=== PATIENT | female | born 1955 | race Two or more races ===

== ENCOUNTER 2023-09-11 01:07 | Inpatient (IN) | payer OTHER ==
[~2023-09-11] VITALS: Ht 167.6 cm; Wt 101.4 kg
[2023-09-11] VITALS (32 sets, daily range): BP systolic 61–131; BP diastolic 34–75; PULSE 58–92; RESP 14–16; TEMP 99.9–100.8; O2SAT 88–100
[2023-09-11] MEDS ORDERED: fentaNYL Drip 2500mCg/250mlNS 250 ML IV ONE (01:18)
[2023-09-11] MEDS ORDERED: PROPOFOL 100 ML IV ONE (01:18)
[2023-09-11] MEDS: fentaNYL Drip 2500mCg/250mlNS 250 ML IV SCH ×2 (01:28→14:21)
[2023-09-11] MEDS: PROPOFOL 100 ML IV SCH ×2 (01:28→14:15)
[2023-09-11 01:38] LABS: Basophils # (auto) 0.1 10 ^3/uL (0-0.2); Basophils % (auto) 0.7 % (0.0-2.0); Eosinophils # (auto) 0.4 10 ^3/uL (0-0.8); Eosinophils % (auto) 2.6 % (0.0-7.0); Hematocrit 44.2 % (36.0-46.0); Hemoglobin 14.3 g/dL (12.2-16.2); Lymphocytes # (auto) 7.4 10 ^3/uL (0.4-5.4); Lymphocytes % (auto) 42.7 % (10.0-50.0); Mean Corpuscular Hemoglobin 28.4 pg (28.0-32.0); Mean Corpuscular Hgb Conc. 32.2 g/dL (32.0-36.0); Mean Corpuscular Volume 88.1 fL (80.0-100.0); Monocytes # (auto) 0.7 10 ^3/uL (0-1.3); Monocytes % (auto) 3.8 % (0.0-12.0); Neutrophils # (auto) 8.7 10 ^3/uL (1.6-8.6); Neutrophils % (auto) 50.2 % (37.0-80.0); Nucleated Red Blood Cells % 0.1 %; Red Blood Cells 5.02 10^6/uL (4.0-5.20); Red Cell Distribution Width 13.8 % (11.8-14.3); White Blood Cell 17.2 10^3/uL (4.4-10.8)
[2023-09-11 01:50] LABS: Alanine Aminotransferase 287 U/L (7-40); Albumin 3.8 g/dL (3.2-4.8); Alkaline Phosphatase 142 U/L (46-116); Anion Gap 11 (5-15); Aspartate Aminotransferase 290 U/L (13-40); BUN/Creatinine Ratio 7.2 (10.0-20.0); Blood Urea Nitrogen 7 mg/dL (9-23); Calcium 8.2 mg/dL (8.7-10.4); Carbon Dioxide 22 mmol/L (20-30); Chloride 106 mmol/L (98-107); Glucose 233 mg/dL (74-106); Potassium 3.1 mmol/L (3.5-5.1); Sodium 139 mmol/L (136-145)
[2023-09-11 01:51] LABS: Bilirubin, Total 0.5 mg/dL (0.2-1.0); Total Protein 6.2 g/dL (5.7-8.2)
[2023-09-11] MEDS ORDERED: LIDOCAINE 4MG/ML IV SOLN 500 ML IV SCH (02:00)
[2023-09-11] MEDS ORDERED: LIDOCAINE HCL 100 MG/5ML (2%) SYRG INJ IV ONE (02:00)
[2023-09-11 03:19] LABS: Base Excess -5.5 mmol/L (-2.0-2.0)
[2023-09-11 03:27] LABS: Urine Bacteria NONE SEEN /hpf (None Seen); Urine Blood 1+ /uL (Negative); Urine Clarity HAZY (Clear); Urine Color Yellow (Yellow); Urine Mucus FEW (None Seen); Urine Protein, UAD 1+ (Negative); Urine Specific Gravity 1.018 (1.001-1.035); Urine WBC 3 /hpf (0 - 5); Urine pH 5.5 (5.0-8.0)
[2023-09-11] MEDS ORDERED: ONDANSETRON HCL 4 MG/2 ML VIAL IV PRN (04:30)
[2023-09-11] MEDS ORDERED: DOCUSATE SOD 100 MG CAP PO PRN (04:30)
[2023-09-11] MEDS ORDERED: MORPHINE SULFATE INJ 2 MG/ml SYRG IV PRN (04:30)
[2023-09-11] MEDS ORDERED: VANCOMYCIN PER PHARMACY 0 MG IV SCH (04:45)
[2023-09-11] MEDS: SODIUM CHLORIDE 0.9% 1,000 ML IV SCH ×2 (04:58→14:30)
[2023-09-11] MEDS: POTASSIUM CHL 20MEQ/100ML 100 ML IV SCH ×2 (04:59→07:00)
[2023-09-11] MEDS ORDERED: VANCOMYCIN 1GM/250ML 250 ML IV ONE (05:00)
[2023-09-11 05:13] LABS: INR 1.02 (0.9-1.15); Prothrombin Time 10.7 sec (9.3-11.8)
[2023-09-11 06:07] LABS: Lactic Acid w/Reflex 2.1 mmol/L (0.4-2.0)
[2023-09-11] MEDS: CEFEPIME 1GM/ 50ML 50 ML IV SCH ×3 (06:48→22:02)
[2023-09-11 08:29] LABS: Base Excess -3.1 mmol/L (-2.0-2.0)
[2023-09-11] MEDS ORDERED: SODIUM CHLORIDE 0.9% 1,000 ML IV ONE ×2 (09:00→13:30)
[2023-09-11] MEDS: MAGNESIUM SULFATE 1GM/100ML 100 ML IV SCH ×2 (09:35→10:56)
[2023-09-11 12:25] LABS: Anion Gap 11 (5-15); Carbon Dioxide 21 mmol/L (20-30); Chloride 108 mmol/L (98-107); Potassium 4.1 mmol/L (3.5-5.1); Sodium 140 mmol/L (136-145)
[2023-09-11 12:43] LABS: BUN/Creatinine Ratio 6.1 (10.0-20.0); Blood Urea Nitrogen 7 mg/dL (9-23)
[2023-09-11 12:44] LABS: Magnesium 2.5 mg/dL (1.6-2.6)
[2023-09-11 13:16] LABS: Glucose 102 mg/dL (74-106)
[2023-09-11 13:18] LABS: Lactic Acid w/Reflex 3.9 mmol/L (0.4-2.0)
[2023-09-11 13:52] LABS: Amphetamine Screen, Urine Neg (NEGATIVE)
[2023-09-11 13:53] LABS: Barbiturate Scree,Urine Neg (NEGATIVE); Benzodiazephine Screen, Urine Neg (NEGATIVE); Cocaine Screen, Urine Neg (NEGATIVE)
[2023-09-11 13:54] LABS: Cannabinoid Screen, Urine Neg (NEGATIVE); Opiate Scree,Urine Neg (NEGATIVE); Phencyclidine Screen, Urine Neg (NEGATIVE)
[2023-09-11] MEDS ORDERED: LIDOCAINE 1% (LOCAL ANESTH.) PF 5ml SDV ID ONE (17:15)
[2023-09-11] MEDS: VANCOMYCIN 1GM/250ML 250 ML IV SCH (17:39)
[2023-09-11] MEDS ORDERED: ASPirin 81 mg TAB PO ONE (21:00)
[2023-09-11] MEDS ORDERED: HEPARIN SODIUM (PORCINE) 5000 UNITS/ML 1ML VIAL IV ONE (21:15)
[2023-09-11] MEDS ORDERED: HEPARIN DRIP/D5W 100UNITS/ML 250 ML IV SCH (21:15)
[2023-09-11 21:39] LABS: Basophils # (auto) 0.1 10 ^3/uL (0-0.2); Basophils % (auto) 0.8 % (0.0-2.0); Eosinophils # (auto) 0.1 10 ^3/uL (0-0.8); Eosinophils % (auto) 0.8 % (0.0-7.0); Hematocrit 37.9 % (36.0-46.0); Hemoglobin 12.6 g/dL (12.2-16.2); Lymphocytes # (auto) 0.9 10 ^3/uL (0.4-5.4); Lymphocytes % (auto) 9.4 % (10.0-50.0); Mean Corpuscular Hemoglobin 28.4 pg (28.0-32.0); Mean Corpuscular Hgb Conc. 33.2 g/dL (32.0-36.0); Mean Corpuscular Volume 85.6 fL (80.0-100.0); Monocytes # (auto) 0.7 10 ^3/uL (0-1.3); Monocytes % (auto) 7.6 % (0.0-12.0); Neutrophils # (auto) 7.6 10 ^3/uL (1.6-8.6); Neutrophils % (auto) 81.4 % (37.0-80.0); Nucleated Red Blood Cells % 0.1 %; Red Blood Cells 4.43 10^6/uL (4.0-5.20); Red Cell Distribution Width 13.8 % (11.8-14.3); White Blood Cell 9.3 10^3/uL (4.4-10.8)
[2023-09-11] MEDS: LIDOCAINE 4MG/ML IV SOLN 500 ML IV SCH (22:00)
[2023-09-11] MEDS: ACETAMINOPHEN 325 MG TAB PO PRN (22:01)
[2023-09-11] MEDS: SODIUM CHLOR 0.9% PF (SALINE LOCK) 10ML VIAL/SYR IV SCH (22:01)
[2023-09-11 22:35] LABS: INR 1.04 (0.9-1.15); Partial Thromboplastin Time 28.1 SEC (24.5-34.5); Prothrombin Time 10.9 sec (9.3-11.8)
[2023-09-11] MEDS ORDERED: NOREPINEPHRINE 8 MG/250ML KIT 250 ML IV ONE (23:15)
[2023-09-11] MEDS: NOREPINEPHRINE 8 MG/250ML KIT 250 ML IV SCH (23:29)
[2023-09-12] VITALS (104 sets, daily range): BP systolic 68–145; BP diastolic 33–78; PULSE 58–104; RESP 14–24; TEMP 97.3–101.7; O2SAT 88–100
[2023-09-12] MEDS: MIDAZOLAM DRIP 50 mg/50mL 50 ML IV SCH ×4 (01:54→19:25)
[2023-09-12] MEDS: SODIUM CHLORIDE 0.9% 1,000 ML IV SCH ×2 (01:55→11:19)
[2023-09-12] MEDS: fentaNYL Drip 2500mCg/250mlNS 250 ML IV SCH ×3 (02:34→16:44)
[2023-09-12 04:27] LABS: Basophils # (auto) 0.1 10 ^3/uL (0-0.2); Basophils % (auto) 0.6 % (0.0-2.0); Eosinophils # (auto) 0.1 10 ^3/uL (0-0.8); Eosinophils % (auto) 0.7 % (0.0-7.0); Hematocrit 36.8 % (36.0-46.0); Hemoglobin 12.3 g/dL (12.2-16.2); Lymphocytes # (auto) 1.5 10 ^3/uL (0.4-5.4); Lymphocytes % (auto) 11.6 % (10.0-50.0); Mean Corpuscular Hemoglobin 28.6 pg (28.0-32.0); Mean Corpuscular Hgb Conc. 33.3 g/dL (32.0-36.0); Monocytes # (auto) 1.2 10 ^3/uL (0-1.3); Monocytes % (auto) 9.1 % (0.0-12.0); Red Blood Cells 4.29 10^6/uL (4.0-5.20); Red Cell Distribution Width 13.8 % (11.8-14.3); White Blood Cell 12.9 10^3/uL (4.4-10.8)
[2023-09-12 04:31] LABS: Albumin 3.2 g/dL (3.2-4.8); Anion Gap 8 (5-15); Aspartate Aminotransferase 136 U/L (13-40); BUN/Creatinine Ratio 9.8 (10.0-20.0); Bilirubin, Direct 0.4 mg/dL (<0.3); Bilirubin, Total 0.7 mg/dL (0.2-1.0); Blood Urea Nitrogen 17 mg/dL (9-23); Calcium 8.2 mg/dL (8.5-10.1); Carbon Dioxide 22 mmol/L (20-30); Chloride 110 mmol/L (98-107); Glucose 152 mg/dL (74-106); Potassium 3.5 mmol/L (3.5-5.1); Sodium 140 mmol/L (136-145); Total Protein 5.4 g/dL (5.7-8.2)
[2023-09-12 04:50] LABS: INR 1.09 (0.9-1.15); Prothrombin Time 11.4 sec (9.3-11.8)
[2023-09-12 04:52] LABS: Partial Thromboplastin Time > 139.0 SEC (24.5-34.5)
[2023-09-12 04:53] LABS: Alanine Aminotransferase 235 U/L (7-40)
[2023-09-12 05:07] LABS: Alkaline Phosphatase 101 U/L (46-116); Magnesium 2.2 mg/dL (1.6-2.6)
[2023-09-12] MEDS: VANCOMYCIN 1GM/250ML 250 ML IV SCH (05:09)
[2023-09-12] MEDS: CEFEPIME 1GM/ 50ML 50 ML IV SCH (05:12)
[2023-09-12 07:48] LABS: Base Excess -5.8 mmol/L (-2.0-2.0)
[2023-09-12] MEDS: SODIUM CHLOR 0.9% PF (SALINE LOCK) 10ML VIAL/SYR IV SCH ×2 (10:19→22:45)
[2023-09-12] MEDS: ASPirin 81 mg TAB PO SCH (10:19)
[2023-09-12] MEDS: ACETAMINOPHEN 325 MG TAB PO PRN (11:20)
[2023-09-12 13:14] LABS: INR 1.09 (0.9-1.15); Prothrombin Time 11.4 sec (9.3-11.8)
[2023-09-12 13:21] LABS: Partial Thromboplastin Time 89.3 SEC (24.5-34.5)
[2023-09-12] MEDS ORDERED: HEPARIN DRIP/D5W 100UNITS/ML 250 ML IV SCH ×2 (13:45→20:00)
[2023-09-12] MEDS: PROPOFOL 100 ML IV SCH (14:57)
[2023-09-12] MEDS ORDERED: CEFEPIME 1GM/ 50ML 50 ML IV ONE (16:00)
[2023-09-12 19:45] LABS: Urine Bacteria NONE SEEN /hpf (None Seen); Urine Blood 2+ /uL (Negative); Urine Clarity HAZY (Clear); Urine Color Yellow (Yellow); Urine Protein, UAD 2+ (Negative); Urine Specific Gravity 1.024 (1.001-1.035); Urine Urobilinogen Normal (Negative); Urine WBC 14 /hpf (0 - 5); Urine pH 5.5 (5.0-8.0)
[2023-09-12] MEDS: NOREPINEPHRINE 8 MG/250ML KIT 250 ML IV SCH (22:51)
[2023-09-13] VITALS (99 sets, daily range): BP systolic 84–153; BP diastolic 40–78; PULSE 62–85; RESP 15–16; TEMP 98.2–99.1; O2SAT 89–100
[2023-09-13] MEDS: fentaNYL Drip 2500mCg/250mlNS 250 ML IV SCH ×4 (00:12→22:39)
[2023-09-13] MEDS: MIDAZOLAM DRIP 50 mg/50mL 50 ML IV SCH ×3 (00:19→14:34)
[2023-09-13] MEDS: CEFEPIME 1GM/ 50ML 50 ML IV SCH ×4 (00:43→21:35)
[2023-09-13] MEDS ORDERED: POTASSIUM CHL 20MEQ/50ML 50 ML IV ONE (01:00)
[2023-09-13 02:19] LABS: INR 1.11 (0.9-1.15); Prothrombin Time 11.6 sec (9.3-11.8)
[2023-09-13 02:43] LABS: Partial Thromboplastin Time 80.1 SEC (24.5-34.5)
[2023-09-13] MEDS: LIDOCAINE 4MG/ML IV SOLN 500 ML IV SCH ×2 (02:50→21:00)
[2023-09-13] MEDS ORDERED: HEPARIN DRIP/D5W 100UNITS/ML 250 ML IV SCH (03:15)
[2023-09-13 04:07] LABS: Anion Gap 9 (5-15); Carbon Dioxide 21 mmol/L (20-30); Chloride 109 mmol/L (98-107); Potassium 3.4 mmol/L (3.5-5.1); Sodium 139 mmol/L (136-145)
[2023-09-13 04:08] LABS: Calcium 8.4 mg/dL (8.5-10.1)
[2023-09-13 04:09] LABS: Basophils # (auto) 0.1 10 ^3/uL (0-0.2); Basophils % (auto) 0.9 % (0.0-2.0); Eosinophils # (auto) 0.3 10 ^3/uL (0-0.8); Eosinophils % (auto) 4.1 % (0.0-7.0); Hematocrit 34.4 % (36.0-46.0); Hemoglobin 11.8 g/dL (12.2-16.2); Lymphocytes # (auto) 1.5 10 ^3/uL (0.4-5.4); Lymphocytes % (auto) 17.6 % (10.0-50.0); Mean Corpuscular Hemoglobin 29.2 pg (28.0-32.0); Mean Corpuscular Hgb Conc. 34.4 g/dL (32.0-36.0); Mean Corpuscular Volume 84.9 fL (80.0-100.0); Monocytes # (auto) 0.8 10 ^3/uL (0-1.3); Neutrophils # (auto) 5.8 10 ^3/uL (1.6-8.6); Neutrophils % (auto) 68.4 % (37.0-80.0); Red Blood Cells 4.05 10^6/uL (4.0-5.20); Red Cell Distribution Width 13.9 % (11.8-14.3); White Blood Cell 8.5 10^3/uL (4.4-10.8)
[2023-09-13 04:13] LABS: BUN/Creatinine Ratio 9.8 (10.0-20.0); Blood Urea Nitrogen 18 mg/dL (9-23); Glucose 113 mg/dL (74-106)
[2023-09-13 08:20] LABS: Base Excess -5.2 mmol/L (-2.0-2.0)
[2023-09-13] MEDS: SODIUM CHLORIDE 0.9% 1,000 ML IV SCH (08:35)
[2023-09-13 10:15] LABS: INR 1.07 (0.9-1.15); Prothrombin Time 11.2 sec (9.3-11.8)
[2023-09-13] MEDS: ASPirin 81 mg TAB PO SCH (10:24)
[2023-09-13] MEDS: SODIUM CHLOR 0.9% PF (SALINE LOCK) 10ML VIAL/SYR IV SCH ×2 (10:25→22:26)
[2023-09-13] MEDS ORDERED: SODIUM CHLORIDE 0.9% 250 ML IV SCH (11:30)
[2023-09-13] MEDS ORDERED: SODIUM CHLORIDE 0.9% 250 ML IV ONE (11:45)
[2023-09-13] MEDS ORDERED: LIDOCAINE 2%HCL (LOCAL ANESTH.) INJ 20ML MDV ONE (14:47)
[2023-09-13] MEDS ORDERED: IODIXANOL 320MG/ML 100ML BTL IV ONE (14:47)
[2023-09-13] MEDS ORDERED: VERAPAMIL 2.5MG/ML INJ 2ML VIAL IV ONE (15:41)
[2023-09-13] MEDS ORDERED: HEPARIN SODIUM (PORCINE) 5000 UNITS/ML 1ML VIAL ONE (15:41)
[2023-09-13] MEDS: PROPOFOL 100 ML IV SCH (17:16)
[2023-09-13] MEDS: HEPARIN DRIP/D5W 100UNITS/ML 250 ML IV SCH (18:45)
[2023-09-13] MEDS: NOREPINEPHRINE 8 MG/250ML KIT 250 ML IV SCH (23:15)
[2023-09-14] VITALS (112 sets, daily range): BP systolic 76–161; BP diastolic 29–77; PULSE 63–90; RESP 15–18; TEMP 98.6–98.9; O2SAT 90–100
[2023-09-14] MEDS: MIDAZOLAM DRIP 50 mg/50mL 50 ML IV SCH ×2 (00:03→08:58)
[2023-09-14] MEDS: HEPARIN DRIP/D5W 100UNITS/ML 250 ML IV SCH ×3 (00:49→21:32)
[2023-09-14] MEDS: SODIUM CHLORIDE 0.9% 1,000 ML IV SCH ×3 (01:15→15:51)
[2023-09-14] MEDS ORDERED: HEPARIN DRIP/D5W 100UNITS/ML 250 ML IV SCH (03:30)
[2023-09-14] MEDS ORDERED: HEPARIN SODIUM (PORCINE) 5000 UNITS/ML 1ML VIAL ONE (03:34)
[2023-09-14] MEDS ORDERED: HEPARIN SODIUM (PORCINE) 5000 UNITS/ML 1ML VIAL IV ONE (03:45)
[2023-09-14 04:17] LABS: Basophils # (auto) 0 10 ^3/uL (0-0.2); Basophils % (auto) 0.8 % (0.0-2.0); Eosinophils # (auto) 0.3 10 ^3/uL (0-0.8); Hemoglobin 11.3 g/dL (12.2-16.2); Lymphocytes # (auto) 0.9 10 ^3/uL (0.4-5.4); Lymphocytes % (auto) 15.7 % (10.0-50.0); Mean Corpuscular Hemoglobin 28.2 pg (28.0-32.0); Mean Corpuscular Hgb Conc. 33.4 g/dL (32.0-36.0); Mean Corpuscular Volume 84.4 fL (80.0-100.0); Monocytes # (auto) 0.4 10 ^3/uL (0-1.3); Monocytes % (auto) 7.5 % (0.0-12.0); Neutrophils # (auto) 4.2 10 ^3/uL (1.6-8.6); Nucleated Red Blood Cells % 0.1 %; Red Blood Cells 4.02 10^6/uL (4.0-5.20); Red Cell Distribution Width 14.1 % (11.8-14.3)
[2023-09-14 04:51] LABS: Alanine Aminotransferase 103 U/L (7-40); Albumin 2.9 g/dL (3.2-4.8); Alkaline Phosphatase 86 U/L (46-116); Anion Gap 9 (5-15); Aspartate Aminotransferase 51 U/L (13-40); BUN/Creatinine Ratio 12.2 (10.0-20.0); Bilirubin, Total 0.8 mg/dL (0.2-1.0); Blood Urea Nitrogen 21 mg/dL (9-23); Calcium 8.1 mg/dL (8.7-10.4); Carbon Dioxide 21 mmol/L (20-30); Chloride 110 mmol/L (98-107); Glucose 88 mg/dL (74-106); Potassium 3.3 mmol/L (3.5-5.1); Sodium 140 mmol/L (136-145)
[2023-09-14 05:04] LABS: Bilirubin, Direct 0.4 mg/dL (<0.3)
[2023-09-14] MEDS: CEFEPIME 1GM/ 50ML 50 ML IV SCH ×3 (05:50→21:36)
[2023-09-14] MEDS: fentaNYL Drip 2500mCg/250mlNS 250 ML IV SCH (07:59)
[2023-09-14] MEDS ORDERED: SODIUM CHLORIDE 0.9% 500 ML IV ONE (09:15)
[2023-09-14] MEDS ORDERED: POTASSIUM CHL 20MEQ/100ML 100 ML IV ONE (09:15)
[2023-09-14] MEDS: ASPirin 81 mg TAB PO SCH (09:47)
[2023-09-14] MEDS: SODIUM CHLOR 0.9% PF (SALINE LOCK) 10ML VIAL/SYR IV SCH ×2 (09:47→21:36)
[2023-09-14 10:00] LABS: INR 1.08 (0.9-1.15); Partial Thromboplastin Time 61.2 SEC (24.5-34.5); Prothrombin Time 11.3 sec (9.3-11.8)
[2023-09-14 16:38] LABS: INR 1.08 (0.9-1.15); Partial Thromboplastin Time 48.3 SEC (24.5-34.5); Prothrombin Time 11.3 sec (9.3-11.8)
[2023-09-14 19:17] LABS: Creatinine, Urine 145.68 mg/dL (30.0-125.0)
[2023-09-14 19:27] LABS: Urine Bacteria NONE SEEN /hpf (None Seen); Urine Blood 2+ /uL (Negative); Urine Clarity HAZY (Clear); Urine Color Yellow (Yellow); Urine Protein, UAD 2+ (Negative); Urine Specific Gravity 1.027 (1.001-1.035); Urine Urobilinogen Normal (Negative); Urine WBC 10 /hpf (0 - 5); Urine pH 5.5 (5.0-8.0)
[2023-09-14] MEDS: LIDOCAINE 4MG/ML IV SOLN 500 ML IV SCH (21:00)
[2023-09-14 22:01] LABS: INR 1.09 (0.9-1.15); Partial Thromboplastin Time 63.8 SEC (24.5-34.5); Prothrombin Time 11.4 sec (9.3-11.8)
[2023-09-14] MEDS: NOREPINEPHRINE 8 MG/250ML KIT 250 ML IV SCH (23:15)
[2023-09-15] VITALS (98 sets, daily range): BP systolic 114–186; BP diastolic 51–98; PULSE 76–131; RESP 13–29; TEMP 98.6–99.1; O2SAT 90–99
[2023-09-15] MEDS: PROPOFOL 100 ML IV SCH (01:30)
[2023-09-15 04:37] LABS: Basophils # (auto) 0 10 ^3/uL (0-0.2); Basophils % (auto) 0.4 % (0.0-2.0); Eosinophils # (auto) 0 10 ^3/uL (0-0.8); Eosinophils % (auto) 0.3 % (0.0-7.0); Hematocrit 33.4 % (36.0-46.0); Hemoglobin 11.3 g/dL (12.2-16.2); Lymphocytes # (auto) 0.6 10 ^3/uL (0.4-5.4); Lymphocytes % (auto) 9.8 % (10.0-50.0); Mean Corpuscular Hemoglobin 29.1 pg (28.0-32.0); Mean Corpuscular Hgb Conc. 33.9 g/dL (32.0-36.0); Mean Corpuscular Volume 85.7 fL (80.0-100.0); Monocytes # (auto) 0.4 10 ^3/uL (0-1.3); Monocytes % (auto) 6.3 % (0.0-12.0); Neutrophils # (auto) 5.4 10 ^3/uL (1.6-8.6); Neutrophils % (auto) 83.2 % (37.0-80.0); Nucleated Red Blood Cells % 0.1 %; Red Cell Distribution Width 13.7 % (11.8-14.3); White Blood Cell 6.4 10^3/uL (4.4-10.8)
[2023-09-15 04:44] LABS: Anion Gap 11 (5-15); Carbon Dioxide 19 mmol/L (20-30); Chloride 111 mmol/L (98-107); Potassium 3.9 mmol/L (3.5-5.1); Sodium 141 mmol/L (136-145)
[2023-09-15 04:45] LABS: Calcium 8.2 mg/dL (8.7-10.4)
[2023-09-15 04:50] LABS: BUN/Creatinine Ratio 15.3 (10.0-20.0); Blood Urea Nitrogen 24 mg/dL (9-23); Glucose 127 mg/dL (74-106)
[2023-09-15 04:51] LABS: Magnesium 1.9 mg/dL (1.6-2.6)
[2023-09-15 04:52] LABS: INR 1.1 (0.9-1.15); Prothrombin Time 11.5 sec (9.3-11.8)
[2023-09-15 05:00] LABS: Partial Thromboplastin Time 74.3 SEC (24.5-34.5)
[2023-09-15] MEDS: SODIUM CHLORIDE 0.9% 1,000 ML IV SCH ×3 (05:15→22:22)
[2023-09-15 07:20] LABS: Base Excess -7.2 mmol/L (-2.0-2.0)
[2023-09-15] MEDS: CEFEPIME 1GM/ 50ML 50 ML IV SCH ×3 (08:14→21:36)
[2023-09-15] MEDS: SODIUM CHLOR 0.9% PF (SALINE LOCK) 10ML VIAL/SYR IV SCH ×2 (09:41→21:37)
[2023-09-15] MEDS: ASPirin 81 mg TAB PO SCH (09:41)
[2023-09-15 10:27] LABS: INR 1.11 (0.9-1.15); Prothrombin Time 11.6 sec (9.3-11.8)
[2023-09-15 10:33] LABS: Partial Thromboplastin Time 70.5 SEC (24.5-34.5)
[2023-09-15] MEDS ORDERED: METOPROLOL TARTRATE 25 MG TAB PO SCH (13:00)
[2023-09-15] MEDS: HEPARIN DRIP/D5W 100UNITS/ML 250 ML IV SCH (16:24)
[2023-09-15] MEDS: hydrALAZINE HCL 20 MG/ML VL IV PRN (16:25)
[2023-09-15] MEDS ORDERED: hydrALAZINE HCL 20 MG/ML VL IV ONE (18:45)
[2023-09-15] MEDS: LIDOCAINE 4MG/ML IV SOLN 500 ML IV SCH (19:31)
[2023-09-15] MEDS ORDERED: FUROSEMIDE 40 MG/4 ML VIAL IV ONE (19:45)
[2023-09-15] MEDS: METOPROLOL TARTRATE 25 MG TAB PO SCH (21:37)
[2023-09-15] MEDS: fentaNYL Drip 2500mCg/250mlNS 250 ML IV SCH (21:44)
[2023-09-15] MEDS: NOREPINEPHRINE 8 MG/250ML KIT 250 ML IV SCH (23:15)
[2023-09-15] MEDS: MIDAZOLAM DRIP 50 mg/50mL 50 ML IV SCH (23:15)
[2023-09-16] VITALS (77 sets, daily range): BP systolic 92–176; BP diastolic 42–85; PULSE 79–157; RESP 10–33; TEMP 98–99.9; O2SAT 93–100
[2023-09-16] MEDS: PROPOFOL 100 ML IV SCH (01:30)
[2023-09-16] MEDS: hydrALAZINE HCL 20 MG/ML VL IV PRN (02:15)
[2023-09-16 04:05] LABS: INR 1.21 (0.9-1.15); Partial Thromboplastin Time 51.5 SEC (24.5-34.5); Prothrombin Time 12.5 sec (9.3-11.8)
[2023-09-16 04:06] LABS: Chloride 109 mmol/L (98-107); Sodium 142 mmol/L (136-145)
[2023-09-16 04:07] LABS: Anion Gap 10 (5-15); Basophils # (auto) 0 10 ^3/uL (0-0.2); Basophils % (auto) 0.3 % (0.0-2.0); Calcium 8.4 mg/dL (8.7-10.4); Carbon Dioxide 23 mmol/L (20-30); Eosinophils # (auto) 0 10 ^3/uL (0-0.8); Hematocrit 34.8 % (36.0-46.0); Lymphocytes # (auto) 0.6 10 ^3/uL (0.4-5.4); Lymphocytes % (auto) 6.1 % (10.0-50.0); Mean Corpuscular Hemoglobin 28.8 pg (28.0-32.0); Mean Corpuscular Hgb Conc. 34.3 g/dL (32.0-36.0); Mean Corpuscular Volume 83.8 fL (80.0-100.0); Monocytes % (auto) 10.1 % (0.0-12.0); Neutrophils # (auto) 8.5 10 ^3/uL (1.6-8.6); Neutrophils % (auto) 83.5 % (37.0-80.0); Red Blood Cells 4.15 10^6/uL (4.0-5.20); Red Cell Distribution Width 13.7 % (11.8-14.3); White Blood Cell 10.2 10^3/uL (4.4-10.8)
[2023-09-16 04:12] LABS: BUN/Creatinine Ratio 19.2 (10.0-20.0); Blood Urea Nitrogen 28 mg/dL (9-23); Glucose 158 mg/dL (74-106)
[2023-09-16] MEDS: CEFEPIME 1GM/ 50ML 50 ML IV SCH ×3 (06:20→22:12)
[2023-09-16 07:23] LABS: Base Excess 0.8 mmol/L (-2.0-2.0)
[2023-09-16] MEDS ORDERED: POTASSIUM CHL 20MEQ/100ML 100 ML IV ONE ×4 (07:30→18:00)
[2023-09-16] MEDS: METOPROLOL TARTRATE 1MG/1ML-5ML VIAL IV PRN ×2 (07:53→19:54)
[2023-09-16] MEDS: METOPROLOL TARTRATE 25 MG TAB PO SCH ×2 (10:00→22:00)
[2023-09-16] MEDS: SODIUM CHLOR 0.9% PF (SALINE LOCK) 10ML VIAL/SYR IV SCH ×2 (10:00→22:07)
[2023-09-16] MEDS: ASPirin 81 mg TAB PO SCH (10:01)
[2023-09-16 10:42] LABS: Base Excess 1.7 mmol/L (-2.0-2.0)
[2023-09-16] MEDS: SODIUM CHLORIDE 0.9% 1,000 ML IV SCH ×2 (11:15→14:00)
[2023-09-16] MEDS ORDERED: MAGNESIUM SULFATE 1GM/100ML 100 ML IV ONE (12:00)
[2023-09-16] MEDS: HEPARIN DRIP/D5W 100UNITS/ML 250 ML IV SCH (12:03)
[2023-09-16 12:29] LABS: Chloride 109 mmol/L (98-107); Sodium 144 mmol/L (136-145)
[2023-09-16 12:30] LABS: Anion Gap 9 (5-15); Carbon Dioxide 26 mmol/L (20-30)
[2023-09-16 12:31] LABS: Calcium 8.2 mg/dL (8.7-10.4)
[2023-09-16 12:35] LABS: BUN/Creatinine Ratio 22.1 (10.0-20.0); Blood Urea Nitrogen 32 mg/dL (9-23); Glucose 169 mg/dL (74-106)
[2023-09-16] MEDS: amLODIPine BESYLATE 5 MG TAB PO SCH (14:36)
[2023-09-16] MEDS: fentaNYL Drip 2500mCg/250mlNS 250 ML IV SCH (14:50)
[2023-09-16] MEDS ORDERED: AMIODARONE BOLUS KIT 100 ML IV ONE (16:15)
[2023-09-16] MEDS ORDERED: AMIODARONE 450mg/250ml AE 250 ML IV SCH (16:15)
[2023-09-16] MEDS ORDERED: DIGOXIN (250MCG/ML) 2 ML AMPULE IV ONE (17:15)
[2023-09-16] MEDS: LIDOCAINE 4MG/ML IV SOLN 500 ML IV SCH (21:00)
[2023-09-16] MEDS: AMIODARONE 450mg/250ml AE 250 ML IV SCH (22:20)
[2023-09-16] MEDS: MIDAZOLAM DRIP 50 mg/50mL 50 ML IV SCH (23:15)
[2023-09-16] MEDS: NOREPINEPHRINE 8 MG/250ML KIT 250 ML IV SCH (23:15)
[2023-09-17] VITALS (104 sets, daily range): BP systolic 86–149; BP diastolic 39–70; PULSE 69–166; RESP 15–36; TEMP 98.2–100.5; O2SAT 92–99
[2023-09-17] MEDS: AMIODARONE 450mg/250ml AE 250 ML IV SCH ×2 (00:14→12:44)
[2023-09-17] MEDS: PROPOFOL 100 ML IV SCH (01:30)
[2023-09-17 03:53] LABS: Basophils # (auto) 0 10 ^3/uL (0-0.2); Basophils % (auto) 0.2 % (0.0-2.0); Eosinophils # (auto) 0 10 ^3/uL (0-0.8); Hemoglobin 7.2 g/dL (12.2-16.2); Neutrophils # (auto) 16.7 10 ^3/uL (1.6-8.6); Nucleated Red Blood Cells % 0.1 %
[2023-09-17 03:56] LABS: Eosinophils % (auto) 0.1 % (0.0-7.0); Hematocrit 21.6 % (36.0-46.0); Lymphocytes # (auto) 2.3 10 ^3/uL (0.4-5.4); Lymphocytes % (auto) 10.6 % (10.0-50.0); Mean Corpuscular Hemoglobin 28.6 pg (28.0-32.0); Mean Corpuscular Hgb Conc. 33.4 g/dL (32.0-36.0); Mean Corpuscular Volume 85.6 fL (80.0-100.0); Monocytes # (auto) 3.1 10 ^3/uL (0-1.3); Monocytes % (auto) 13.9 % (0.0-12.0); Neutrophils % (auto) 75.2 % (37.0-80.0); Red Blood Cells 2.52 10^6/uL (4.0-5.20); Red Cell Distribution Width 13.8 % (11.8-14.3); White Blood Cell 22.1 10^3/uL (4.4-10.8)
[2023-09-17 04:00] LABS: Anion Gap 8 (5-15); Carbon Dioxide 24 mmol/L (20-30); Chloride 110 mmol/L (98-107); Potassium 4.1 mmol/L (3.5-5.1); Sodium 142 mmol/L (136-145)
[2023-09-17 04:06] LABS: BUN/Creatinine Ratio 22.1 (10.0-20.0); Blood Urea Nitrogen 38 mg/dL (9-23); Glucose 166 mg/dL (74-106)
[2023-09-17] MEDS: CEFEPIME 1GM/ 50ML 50 ML IV SCH ×2 (05:34→16:53)
[2023-09-17] MEDS: fentaNYL Drip 2500mCg/250mlNS 250 ML IV SCH (05:34)
[2023-09-17 06:55] LABS: INR 2.04 (0.9-1.15); Prothrombin Time 20.4 sec (9.3-11.8)
[2023-09-17 07:24] LABS: Partial Thromboplastin Time > 139.0 SEC (24.5-34.5)
[2023-09-17] MEDS: HEPARIN DRIP/D5W 100UNITS/ML 250 ML IV SCH (08:30)
[2023-09-17 08:42] LABS: Basophils # (auto) 0 10 ^3/uL (0-0.2); Basophils % (auto) 0.2 % (0.0-2.0); Eosinophils # (auto) 0 10 ^3/uL (0-0.8); Eosinophils % (auto) 0.1 % (0.0-7.0); Mean Corpuscular Hemoglobin 28.2 pg (28.0-32.0); Mean Corpuscular Hgb Conc. 32.7 g/dL (32.0-36.0); White Blood Cell 23.6 10^3/uL (4.4-10.8)
[2023-09-17 08:43] LABS: Hematocrit 21.5 % (36.0-46.0); Lymphocytes # (auto) 3.1 10 ^3/uL (0.4-5.4); Mean Corpuscular Volume 86.2 fL (80.0-100.0); Monocytes # (auto) 3.3 10 ^3/uL (0-1.3); Neutrophils # (auto) 17.2 10 ^3/uL (1.6-8.6); Neutrophils % (auto) 72.7 % (37.0-80.0); Nucleated Red Blood Cells % 0.3 %; Red Cell Distribution Width 13.8 % (11.8-14.3)
[2023-09-17 08:57] LABS: Platelet Estimate Adequate
[2023-09-17] MEDS: amLODIPine BESYLATE 5 MG TAB PO SCH (10:00)
[2023-09-17] MEDS: SODIUM CHLOR 0.9% PF (SALINE LOCK) 10ML VIAL/SYR IV SCH ×2 (10:00→22:00)
[2023-09-17] MEDS: ASPirin 81 mg TAB PO SCH (10:00)
[2023-09-17] MEDS: METOPROLOL TARTRATE 25 MG TAB PO SCH ×2 (10:00→22:46)
[2023-09-17 10:37] LABS: Gastric Occult Blood Positive (Negative); Gastric Occult Blood pH 2
[2023-09-17 10:47] LABS: Base Excess -0.4 mmol/L (-2.0-2.0)
[2023-09-17] MEDS: SODIUM CHLORIDE 0.9% 1,000 ML IV SCH (11:39)
[2023-09-17] MEDS: ACETAMINOPHEN 325 MG TAB PO PRN (14:21)
[2023-09-17] MEDS: FUROSEMIDE 40 MG/4 ML VIAL IV SCH (17:22)
[2023-09-17] MEDS ORDERED: VANCOMYCIN PER PHARMACY 0 MG IV SCH (19:15)
[2023-09-17] MEDS ORDERED: VANCOMYCIN 1GM/250ML 250 ML IV ONE (20:15)
[2023-09-17] MEDS: LIDOCAINE 4MG/ML IV SOLN 500 ML IV SCH (21:00)
[2023-09-17] MEDS: cefTRIAXone 1GM/50ML D5W 50 ML IV SCH (22:46)
[2023-09-17 22:48] LABS: Basophils # (auto) 0 10 ^3/uL (0-0.2); Eosinophils # (auto) 0 10 ^3/uL (0-0.8); Eosinophils % (auto) 0.1 % (0.0-7.0); Lymphocytes # (auto) 2.8 10 ^3/uL (0.4-5.4); Lymphocytes % (auto) 11.8 % (10.0-50.0)
[2023-09-17 22:51] LABS: Basophils % (auto) 0.1 % (0.0-2.0); Hematocrit 19.6 % (36.0-46.0); Mean Corpuscular Hemoglobin 29.1 pg (28.0-32.0); Mean Corpuscular Hgb Conc. 33.2 g/dL (32.0-36.0); Mean Corpuscular Volume 87.6 fL (80.0-100.0); Monocytes # (auto) 2.5 10 ^3/uL (0-1.3); Monocytes % (auto) 10.5 % (0.0-12.0); Neutrophils # (auto) 18.3 10 ^3/uL (1.6-8.6); Neutrophils % (auto) 77.5 % (37.0-80.0); Nucleated Red Blood Cells % 0.1 %; Red Blood Cells 2.24 10^6/uL (4.0-5.20); Red Cell Distribution Width 14.1 % (11.8-14.3); White Blood Cell 23.6 10^3/uL (4.4-10.8)
[2023-09-17 22:55] LABS: Hemoglobin 6.5 g/dL (12.2-16.2)
[2023-09-17 23:07] LABS: % Iron Saturation 17.3 % (15-50)
[2023-09-17] MEDS: MIDAZOLAM DRIP 50 mg/50mL 50 ML IV SCH (23:15)
[2023-09-17] MEDS ORDERED: FUROSEMIDE 20 MG/2 ML VIAL IV ONE (23:15)
[2023-09-17] MEDS: NOREPINEPHRINE 8 MG/250ML KIT 250 ML IV SCH (23:15)
[2023-09-18] VITALS (107 sets, daily range): BP systolic 121–153; BP diastolic 46–85; PULSE 61–85; RESP 12–93; TEMP 98.6–99.9; O2SAT 89–99
[2023-09-18] MEDS: fentaNYL Drip 2500mCg/250mlNS 250 ML IV SCH ×2 (00:10→16:50)
[2023-09-18] MEDS: PROPOFOL 100 ML IV SCH (01:30)
[2023-09-18] MEDS: AMIODARONE 450mg/250ml AE 250 ML IV SCH (03:48)
[2023-09-18] MEDS: HEPARIN DRIP/D5W 100UNITS/ML 250 ML IV SCH (05:21)
[2023-09-18] MEDS: SODIUM CHLORIDE 0.9% 1,000 ML IV SCH ×2 (06:14→09:05)
[2023-09-18] MEDS: ASPirin 81 mg TAB PO SCH (10:00)
[2023-09-18] MEDS: METOPROLOL TARTRATE 25 MG TAB PO SCH ×2 (10:16→22:34)
[2023-09-18] MEDS: FUROSEMIDE 40 MG/4 ML VIAL IV SCH ×2 (10:16→21:02)
[2023-09-18] MEDS: amLODIPine BESYLATE 5 MG TAB PO SCH (10:17)
[2023-09-18] MEDS: SODIUM CHLOR 0.9% PF (SALINE LOCK) 10ML VIAL/SYR IV SCH ×2 (10:18→21:03)
[2023-09-18] MEDS ORDERED: FUROSEMIDE 20 MG/2 ML VIAL IV ONE (12:00)
[2023-09-18 14:02] LABS: Basophils # (auto) 0.1 10 ^3/uL (0-0.2); Basophils % (auto) 0.3 % (0.0-2.0); Eosinophils # (auto) 0 10 ^3/uL (0-0.8); Eosinophils % (auto) 0.1 % (0.0-7.0); Hematocrit 36.4 % (36.0-46.0); Hemoglobin 12.1 g/dL (12.2-16.2); Lymphocytes # (auto) 1.2 10 ^3/uL (0.4-5.4); Lymphocytes % (auto) 6.4 % (10.0-50.0); Mean Corpuscular Hemoglobin 29.2 pg (28.0-32.0); Mean Corpuscular Hgb Conc. 33.1 g/dL (32.0-36.0); Mean Corpuscular Volume 88.2 fL (80.0-100.0); Monocytes # (auto) 1.6 10 ^3/uL (0-1.3); Monocytes % (auto) 8.9 % (0.0-12.0); Neutrophils # (auto) 15.3 10 ^3/uL (1.6-8.6); Neutrophils % (auto) 84.3 % (37.0-80.0); Nucleated Red Blood Cells % 0.1 %; Red Blood Cells 4.13 10^6/uL (4.0-5.20); Red Cell Distribution Width 14.9 % (11.8-14.3); White Blood Cell 18.2 10^3/uL (4.4-10.8)
[2023-09-18 14:16] LABS: Chloride 111 mmol/L (98-107); Potassium 3.4 mmol/L (3.5-5.1); Sodium 142 mmol/L (136-145)
[2023-09-18 14:17] LABS: Anion Gap 8 (5-15); Calcium 6.9 mg/dL (8.7-10.4); Carbon Dioxide 23 mmol/L (20-30)
[2023-09-18 14:22] LABS: Glucose 146 mg/dL (74-106)
[2023-09-18 14:23] LABS: BUN/Creatinine Ratio 28.6 (10.0-20.0)
[2023-09-18 14:50] LABS: Blood Urea Nitrogen 72 mg/dL (9-23)
[2023-09-18 19:35] LABS: Basophils # (auto) 0 10 ^3/uL (0-0.2); Basophils % (auto) 0.3 % (0.0-2.0); Eosinophils # (auto) 0 10 ^3/uL (0-0.8); Eosinophils % (auto) 0.2 % (0.0-7.0); Hematocrit 34.9 % (36.0-46.0); Hemoglobin 11.9 g/dL (12.2-16.2); Lymphocytes # (auto) 1.2 10 ^3/uL (0.4-5.4); Mean Corpuscular Hemoglobin 29.5 pg (28.0-32.0); Mean Corpuscular Volume 86.7 fL (80.0-100.0); Monocytes # (auto) 1.4 10 ^3/uL (0-1.3); Monocytes % (auto) 8.3 % (0.0-12.0); Neutrophils # (auto) 14.6 10 ^3/uL (1.6-8.6); Neutrophils % (auto) 84.2 % (37.0-80.0); Nucleated Red Blood Cells % 0.3 %; Red Blood Cells 4.03 10^6/uL (4.0-5.20); White Blood Cell 17.3 10^3/uL (4.4-10.8)
[2023-09-18] MEDS: LIDOCAINE 4MG/ML IV SOLN 500 ML IV SCH (21:00)
[2023-09-18] MEDS: cefTRIAXone 1GM/50ML D5W 50 ML IV SCH (21:01)
[2023-09-18] MEDS: NOREPINEPHRINE 8 MG/250ML KIT 250 ML IV SCH (23:15)
[2023-09-18] MEDS: MIDAZOLAM DRIP 50 mg/50mL 50 ML IV SCH (23:15)
[2023-09-19] VITALS (105 sets, daily range): BP systolic 115–157; BP diastolic 46–63; PULSE 54–80; RESP 8–21; TEMP 98–99.3; O2SAT 92–98
[2023-09-19] MEDS: PROPOFOL 100 ML IV SCH (01:30)
[2023-09-19] MEDS: HEPARIN DRIP/D5W 100UNITS/ML 250 ML IV SCH (04:04)
[2023-09-19 04:28] LABS: Chloride 108 mmol/L (98-107); Potassium 3.1 mmol/L (3.5-5.1); Sodium 142 mmol/L (136-145)
[2023-09-19 04:29] LABS: Anion Gap 8 (5-15); Carbon Dioxide 26 mmol/L (20-30)
[2023-09-19 04:30] LABS: Calcium 7.6 mg/dL (8.7-10.4)
[2023-09-19 04:33] LABS: Basophils # (auto) 0 10 ^3/uL (0-0.2); Basophils % (auto) 0.1 % (0.0-2.0); Eosinophils # (auto) 0.1 10 ^3/uL (0-0.8); Eosinophils % (auto) 0.3 % (0.0-7.0); Hemoglobin 12.1 g/dL (12.2-16.2); Lymphocytes # (auto) 1.2 10 ^3/uL (0.4-5.4); Lymphocytes % (auto) 7.3 % (10.0-50.0); Mean Corpuscular Hemoglobin 29.5 pg (28.0-32.0); Mean Corpuscular Hgb Conc. 33.7 g/dL (32.0-36.0); Mean Corpuscular Volume 87.4 fL (80.0-100.0); Monocytes # (auto) 1.4 10 ^3/uL (0-1.3); Monocytes % (auto) 8.9 % (0.0-12.0); Neutrophils # (auto) 13.3 10 ^3/uL (1.6-8.6); Neutrophils % (auto) 83.4 % (37.0-80.0); Nucleated Red Blood Cells % 0.1 %; Red Blood Cells 4.12 10^6/uL (4.0-5.20); Red Cell Distribution Width 14.9 % (11.8-14.3)
[2023-09-19 04:34] LABS: Glucose 108 mg/dL (74-106)
[2023-09-19 04:35] LABS: Blood Urea Nitrogen 69 mg/dL (9-23)
[2023-09-19] MEDS: FUROSEMIDE 40 MG/4 ML VIAL IV SCH ×2 (06:44→18:02)
[2023-09-19] MEDS: fentaNYL Drip 2500mCg/250mlNS 250 ML IV SCH (09:30)
[2023-09-19] MEDS: ASPirin 81 mg TAB PO SCH (09:33)
[2023-09-19] MEDS: AMIODARONE 450mg/250ml AE 250 ML IV SCH (10:16)
[2023-09-19] MEDS: amLODIPine BESYLATE 5 MG TAB PO SCH (10:17)
[2023-09-19] MEDS: METOPROLOL TARTRATE 25 MG TAB PO SCH ×2 (10:17→22:28)
[2023-09-19] MEDS: SODIUM CHLOR 0.9% PF (SALINE LOCK) 10ML VIAL/SYR IV SCH ×2 (10:17→22:28)
[2023-09-19] MEDS: SODIUM CHLORIDE 0.9% 1,000 ML IV SCH (13:00)
[2023-09-19] MEDS ORDERED: POTASSIUM CHL 20MEQ/100ML 100 ML IV ONE (13:45)
[2023-09-19] MEDS ORDERED: POTASSIUM EFFERVESENT TAB 25 MEQ GT ONE (14:30)
[2023-09-19] MEDS: LIDOCAINE 4MG/ML IV SOLN 500 ML IV SCH (21:00)
[2023-09-19 21:55] LABS: Urine Amorphous Crystal FEW /hpf (None Seen); Urine Bacteria FEW /hpf (None Seen); Urine Blood 2+ /uL (Negative); Urine Clarity Clear (Clear); Urine Color Colorless (Yellow); Urine Hyaline Cast FEW /lpf (0 - 2); Urine Mucus FEW (None Seen); Urine Protein, UAD TRACE (Negative); Urine Specific Gravity 1.008 (1.001-1.035); Urine Urobilinogen Normal (Negative); Urine WBC 2 /hpf (0 - 5)
[2023-09-19] MEDS: cefTRIAXone 1GM/50ML D5W 50 ML IV SCH (22:28)
[2023-09-19] MEDS: MIDAZOLAM DRIP 50 mg/50mL 50 ML IV SCH (23:15)
[2023-09-19] MEDS: NOREPINEPHRINE 8 MG/250ML KIT 250 ML IV SCH (23:15)
[2023-09-20] VITALS (105 sets, daily range): BP systolic 106–155; BP diastolic 50–84; PULSE 51–159; RESP 9–30; TEMP 98.3–100.4; O2SAT 84–98
[2023-09-20] MEDS: AMIODARONE 450mg/250ml AE 250 ML IV SCH ×2 (01:15→17:35)
[2023-09-20] MEDS: PROPOFOL 100 ML IV SCH (01:30)
[2023-09-20] MEDS: fentaNYL Drip 2500mCg/250mlNS 250 ML IV SCH ×2 (02:10→18:50)
[2023-09-20] MEDS: ACETAMINOPHEN 325 MG TAB PO PRN (02:42)
[2023-09-20 04:22] LABS: Chloride 108 mmol/L (98-107); Potassium 2.7 mmol/L (3.5-5.1); Sodium 146 mmol/L (136-145)
[2023-09-20 04:23] LABS: Anion Gap 12 (5-15); Calcium 8.3 mg/dL (8.5-10.1); Carbon Dioxide 26 mmol/L (20-30)
[2023-09-20 04:27] LABS: Basophils # (auto) 0 10 ^3/uL (0-0.2); Basophils % (auto) 0.1 % (0.0-2.0); Eosinophils # (auto) 0.1 10 ^3/uL (0-0.8); Eosinophils % (auto) 0.7 % (0.0-7.0); Hematocrit 36.7 % (36.0-46.0); Hemoglobin 12.2 g/dL (12.2-16.2); Lymphocytes # (auto) 0.9 10 ^3/uL (0.4-5.4); Lymphocytes % (auto) 6.1 % (10.0-50.0); Mean Corpuscular Hemoglobin 29.5 pg (28.0-32.0); Mean Corpuscular Hgb Conc. 33.3 g/dL (32.0-36.0); Mean Corpuscular Volume 88.7 fL (80.0-100.0); Monocytes # (auto) 1.3 10 ^3/uL (0-1.3); Monocytes % (auto) 8.6 % (0.0-12.0); Neutrophils # (auto) 12.6 10 ^3/uL (1.6-8.6); Neutrophils % (auto) 84.5 % (37.0-80.0); Nucleated Red Blood Cells % 0.2 %; Red Blood Cells 4.14 10^6/uL (4.0-5.20); Red Cell Distribution Width 15.3 % (11.8-14.3); White Blood Cell 14.9 10^3/uL (4.4-10.8)
[2023-09-20 04:28] LABS: BUN/Creatinine Ratio 24.5 (10.0-20.0); Blood Urea Nitrogen 67 mg/dL (9-23); Glucose 99 mg/dL (74-106)
[2023-09-20] MEDS: FUROSEMIDE 40 MG/4 ML VIAL IV SCH (06:00)
[2023-09-20] MEDS: POTASSIUM CHL 20MEQ/100ML 100 ML IV SCH ×3 (06:01→08:50)
[2023-09-20 07:58] LABS: Base Excess 3.1 mmol/L (-2.0-2.0)
[2023-09-20] MEDS ORDERED: FUROSEMIDE 40 MG/4 ML VIAL IV SCH (08:45)
[2023-09-20] MEDS: ASPirin 81 mg TAB PO SCH (08:51)
[2023-09-20] MEDS: amLODIPine BESYLATE 5 MG TAB PO SCH (08:51)
[2023-09-20] MEDS: METOPROLOL TARTRATE 25 MG TAB PO SCH ×3 (08:52→21:06)
[2023-09-20] MEDS: SODIUM CHLOR 0.9% PF (SALINE LOCK) 10ML VIAL/SYR IV SCH ×2 (08:52→21:07)
[2023-09-20 16:19] LABS: Base Excess 3.3 mmol/L (-2.0-2.0)
[2023-09-20 19:24] LABS: Magnesium 1.8 mg/dL (1.6-2.6)
[2023-09-20 19:26] LABS: Phosphorus 3.2 mg/dL (2.4-5.1)
[2023-09-20] MEDS ORDERED: POTASSIUM CHL 20 Meq TABLET PO ONE (20:00)
[2023-09-20] MEDS ORDERED: POTASSIUM CHL 20MEQ/100ML 100 ML IV ONE (20:00)
[2023-09-20] MEDS: LIDOCAINE 4MG/ML IV SOLN 500 ML IV SCH (21:00)
[2023-09-20] MEDS: cefTRIAXone 1GM/50ML D5W 50 ML IV SCH (21:02)
[2023-09-20] MEDS ORDERED: MUPIROCIN 2% OINT 15gm or 22gm FOR MRSA NARES EACHNOSTRI SCH (22:00)
[2023-09-20] MEDS: NOREPINEPHRINE 8 MG/250ML KIT 250 ML IV SCH (23:15)
[2023-09-20] MEDS: MIDAZOLAM DRIP 50 mg/50mL 50 ML IV SCH (23:15)
[2023-09-21] VITALS (8 sets, daily range): BP systolic 57–146; BP diastolic 35–76; PULSE 90–115; RESP 14–29; TEMP 99.2; O2SAT 91–95
[2023-09-21] MEDS: PROPOFOL 100 ML IV SCH (01:30)
[2023-09-21] MEDS ORDERED: FUROSEMIDE 40 MG/4 ML VIAL IV SCH (06:00)
== END 2023-09-21 04:15 | disposition short-term general hospital (02) | DRG 870 ==
LOC: ER 01:07 → EDBD 01:07 → TELE 04:23 → ICU WEST 18:35
PROVIDERS: ADMIT Internal Medicine; ATTEND Internal Medicine
PROC: 5A1955Z Respiratory Ventilation, Greater than 96 Consecutive Hours (ICD-10-PCS; principal; 2023-09-11)
PROC: 0BH17EZ Insertion of Endotracheal Airway into Trachea, Via Natural or Artificial Opening (ICD-10-PCS; 2023-09-11)
PROC: 06HY33Z Insertion of Infusion Device into Lower Vein, Percutaneous Approach (ICD-10-PCS; 2023-09-11)
PROC: 4A00X4Z Measurement of Central Nervous Electrical Activity, External Approach (ICD-10-PCS; 2023-09-11)
PROC: 4A023N7 Measurement of Cardiac Sampling and Pressure, Left Heart, Percutaneous Approach (ICD-10-PCS; 2023-09-13)
PROC: B211YZZ Fluoroscopy of Multiple Coronary Arteries using Other Contrast (ICD-10-PCS; 2023-09-13)
PROC: 30233N1 Transfusion of Nonautologous Red Blood Cells into Peripheral Vein, Percutaneous Approach (ICD-10-PCS; 2023-09-17)
DX: A41.9 Sepsis, unspecified organism (principal); G93.41 Metabolic encephalopathy; I46.9 Cardiac arrest, cause unspecified; R65.21 Severe sepsis with septic shock; I49.01 Ventricular fibrillation; J96.01 Acute respiratory failure with hypoxia; J96.02 Acute respiratory failure with hypercapnia; K72.00 Acute and subacute hepatic failure without coma; I21.4 Non-ST elevation (NSTEMI) myocardial infarction; J15.0 Pneumonia due to Klebsiella pneumoniae; K68.3 Retroperitoneal hematoma; S22.42XA Multiple fractures of ribs, left side, initial encounter for closed fracture; E87.29 Other acidosis; N17.9 Acute kidney failure, unspecified; I42.8 Other cardiomyopathies; K92.2 Gastrointestinal hemorrhage, unspecified; I13.0 Hypertensive heart and chronic kidney disease with heart failure and stage 1 through stage 4 chronic kidney disease, or unspecified chronic kidney disease; E87.6 Hypokalemia; I48.91 Unspecified atrial fibrillation; I51.3 Intracardiac thrombosis, not elsewhere classified; E53.8 Deficiency of other specified B group vitamins; D50.0 Iron deficiency anemia secondary to blood loss (chronic); I50.9 Heart failure, unspecified; N18.2 Chronic kidney disease, stage 2 (mild); T45.515A Adverse effect of anticoagulants, initial encounter; Z88.8 Allergy status to other drugs, medicaments and biological substances; Z91.012 Allergy to eggs; Y92.89 Other specified places as the place of occurrence of the external cause; Z82.3 Family history of stroke
CPT/HCPCS: 31500; 36415; 36569; 36600; 70450; 71045; 71250; 74176; 76705; 76775; 80048; 80053; 80076; 80202; 80307; 81001; 82271; 82570; 82607; 82805; 83540; 83550; 83605; 83615; 83735; 83880; 84100; 84132; 84300; 84484; 85025; 85045; 85610; 85730; 86850; 86880; 86900; 86901; 86920; 87040; 87070; 87077; 87081; 87086; 87186; 87205; 93005; 93306; 93458; 94002; 94003; 95819; 99152; G0378; J0696; J2250; J2704; J3480; J7060; Q9967